=== PATIENT | male | born 1955 | race Caucasian/White ===

== ENCOUNTER 2022-08-20 10:32 | Emergency (ER) | payer OTHER ==
--- OUTSIDE RECORDS SUMMARY | 2022-08-20 10:36 | XMS REPORT | Continuity of Care Document ---
:1955 Author Organization [facility] t Address [address] [place] [address] Care Team Providers Name Role Phone PCP, PATIENT DOES NOT HAVE A Primary Care Physician Ceciliaa DONNA Leigh Attending Clinician Unavailable Donna Brantley Attending Clinician Payers Payer Name Policy Type Policy Number Effective Date Expiration Date S [facility] [id number] 2021 00:00:00 Problems Condition Condition Condition Status Onset Resolution Last Treating Co mments Source Name Details Category Date Date Treatment Clinician Date No known No known Disease Unive rs active active ity of problems problems [facility] Allergies, Adverse Reactions, Alerts Allergy Allergy Status Severity Reaction(s) Onset Inactive Treating Comm ents Source Name Type Date Date Clinician NO KNOWN Drug Active Univers ALLERGIE Class ity of S [facility] Social History Social Habit Start Date Stop Date Quantity Comments Source Exposure to 2022-04-18 2022-04-28 Not sure [facility]-CoV-2 00:00:00 13:22:00 [facility] (event) [place] Tobacco use and 2022-04-28 2022-04-28 Smokeless tobacco Un iversity of exposure 00:00:00 00:00:00 non-user [facility] Sex Ass[birth year] Universit y of 00:00:00 00:00:00 [facility] Smoking Status Start Date Stop Date Source Never smoked tobacco [facility] Medications Ordered Filled Start Stop Current Ordering Indication Dosage Frequency Signature Comments Components Source Medication Medication Date Date Medication? Clinician (SIG) Name Name ciplitloxac 2021- No [id number] 500mg Take 1 Univers in HCl 500 04-28 tablet by ity of mg tablet 00:00: 04:59 mouth [place] 00 :00 every 12 Medical (twelve) Branch hours for 7 days. ciprofloxac 2021- No [id number] 500mg Take 1 Univers in HCl 500 04-28 tablet by ity of mg tablet 00:00: 04:59 mouth [place] 00 :00 every 12 Medical (twelve) Branch hours for 7 days. Vital Signs Vital Name Observation Time Observation Value Comments Source Systolic blood 2022-04-28 18:25:00 153 mm[Hg] Univer sity [facility] Diastolic blood 2022-04-28 18:25:00 84 mm[Hg] Unive [facility] Heart rate 2022-04-28 18:20:00 82 /min [facility] Body temperature 2022-04-28 18:20:00 36.94 [facility] Respiratory rate 2022-04-28 18:20:00 18 /[facility] Body height 2022-04-28 18:20:00 167.6 cm [facility] Body weight 2022-04-28 18:20:00 71.668 kg [facility] BMI 2022-04-28 18:20:00 25.50 kg/m2 [facility] Procedures Procedure Date / Time Performed Performing Clinician Sourc e POCT URINALYSIS 2022-04-28 00:00:00 Concepcion [facility] o [facility] Encounters Start End Encounter Admission Attending Care Care Encounter Source Date/Time Date/Time Type Type Clinicians Facility Department ID 2022-04-28 2022-04-28 Outpatient O VANI [facility] [id number] Univers 13:00:00 14:07:24 DONNA williamson o f [facility] 2022-04-28 2022-04-28 Urgent Vani [facility] [id number] Univers 13:00:00 13:20:00 Care [facility] [id number] i ty of REUBEN [id number] Ashwin as RONY?BLEA [id number] [address] MEDICAL OFFICE BUILDING Results Test Description Test Time Test Comments Results Result Comments Source POCT URINALYSIS W SPECIFIC GRAVITY 2022-04-28 18:27:00 Test Item Value Reference Range Interpretation Comme nts POCT U SP GRAV (test code = 3255) 1.000 mg/dl 1.005-1.025 A POCT PH U (test code = 3254) 5 mg/dl 5-8 POCT U LEUK EST (test code = 3263) ++ Negative - Negative POCT U NIT (test code = 3262) + Negative - Negative POCT U PROT (test code = 3259) +++500 mg/dL Negative - Negative POCT U GLU (test code = 3256) normal Negative - Negative POCT U KETONE (test code = 3258) ++moderate Negative - Negative POCT U UROBILI (test code = 3260) normal 0.2-1 POCT U BILI (test code = 3261) negative Negative - Negative POCT U BLD (test code = 3257) about 250 Med/dL Negative - Negative POCT U COLOR (test code = 3266) red POCT U APPEAR (test code = 3267) cloudy Lab Interpretation (test code = 52395-8) Abnormal General acute hospital URINALYSIS W SPECIFIC [id number] 18:27:00 Test Item Value Reference Range Interpretation Comments POCT U SP GRAV (test code 1.000 mg/dl 1.005-1.025 A = 3255) POCT PH U (test code = 5 mg/dl 5-8 4) POCT U LEUK EST (test ++ Negative - Negative code = 3263) POCT U NIT (test code = + Negative - Negative 3262) POCT U PROT (test code = +++500 mg/dL Negative - Negative 3259) POCT U GLU (test code = normal Negative - Negative 3256) POCT U KETONE (test code ++moderate Negative - Negative = 3258) POCT U UROBILI (test code normal 0.2-1 = 3260) POCT U BILI (test code = negative Negative - Negative 3261) POCT U BLD (test code = about 250 Med/dL Negative - Negative 3257) POCT U COLOR (test code = red 3266) POCT U APPEAR (test code cloudy = 3267) Lab Interpretation (test Abnormal code = 94133-6) [facility]
[2022-08-20] MEDS ORDERED: MORPHINE 4 MG/ML SYR ONE ×2 (10:59→13:48)
[2022-08-20 11:16] LABS: Absolute Lymphocytes (CBC) 1.2 K/uL (0.7-4.9); Hematocrit 36.1 % (39.6-49.0); Lymphocytes % 8.6 % (15.3-44.8); MCV 98.3 fL (80-100); MPV 6.7 fL (7.6-11.3); RBC Red Blood Cell Count 3.67 M/uL (4.33-5.43)
[2022-08-20 11:18] LABS: Protime INR 1.05
[2022-08-20 11:34] LABS: Albumin 3.6 g/dL (3.4-5.0); Bilirubin Direct 0.1 mg/dL (0-0.2); Bilirubin Total 0.4 mg/dL (0.2-1.0); Magnesium 1.7 mg/dL (1.6-2.4); Potassium 3.1 mmol/L (3.5-5.1); Protein, Total 7.3 g/dL (6.4-8.2); Troponin High Sensitivity 4.5 pg/mL (<58.9)
[2022-08-20 11:51] LABS: SARS-COV-2 RT PCR NEGATIVE (NEGATIVE)
--- NOTE | 2022-08-20 12:39 | RAD REPORT ---
EXAM DESCRIPTION: CT - Angio Aorta For Dissection - 08/20/2022 11:48 am CLINICAL HISTORY: . Chest and abd pain COMPARISON: None TECHNIQUE: Computed tomography angiography of the chest, abdomen pelvis were obtained. 100 cc Isovue 370 was administered intravenously. Coronal and sagittal reconstruction were performed. MIP 3D reconstruction was performed All CT scans are performed using dose optimization technique as appropriate and may include automated exposure control or mA/KV adjustment according to patient size. FINDINGS: An aortic dissection is not seen. An aortic aneurysm is not displayed. The celiac, SMA and CESAR are patent . A lung consolidation is not present. A pericardial effusion is not seen. A pleural effusion is not no criss. The liver,spleen, pancreas,adrenals and kidneys demonstrate no significant abnormality. Small umbilical hernia. Fatty liver Spleen, pancreas, adrenals and kidneys demonstrate no gross abnormality. Large left inguinal hernia contains bowel. No obstruction. Large left hydrocele. Small right inguinal hernia IMPRESSION: Negative for an aortic dissection. Large left inguinal hernia contains bowel. No obstruction. Large hydrocele
--- NOTE | 2022-08-20 13:25 | RAD REPORT ---
EXAM DESCRIPTION: US - Abdomen Exam Limited - 08/20/2022 1:15 pm CLINICAL HISTORY: ABD PAIN COMPARISON: Angio Aorta For Dissection dated 08/20/2022 FINDINGS: No gallstones, sludge or other abnormalities within the gallbladder lumen. No gallbladder wall thickening or edema. No measurable quantity of pericholecystic fluid. No common duct stone or biliary tree dilatation identified. IMPRESSION: No gallbladder or biliary tree abnormality identifiable.
--- NOTE | 2022-08-20 14:28 | EDPHYS ---
Physician Documentation [facility] Name: Panchito Rutherford Age: 67 yrs Sex: Male : 1955 Arrival Date: 08/20/2022 Time: 10:36 Bed 16 Private MD: ED Physician Gil Conte HPI: 08/20 10:37 This 67 yrs old Male presents to ER via EMS with complaints of Abdominal Pain. jmm 10:37 The patient presents with abdominal pain. Onset: The symptoms/episode began/occurred jmm gradually, this morning. This is a 67-year-old male that presents emerged part with complaints of cute onset epigastric pain. Patient states symptoms initially began this morning while at work the patient had an episode of coughing and the pain acutely intensified. Patient states having multiple episodes of vomiting. Denies diarrhea. Denies shortness of breath.. Historical: - Allergies: 10:38 No Known Allergies; ss - Immunization history:: Client reports having NOT received the Covid vaccine. - Social history:: Smoking status: Patient denies any tobacco usage or history of. Patient uses alcohol, on a daily basis. admits to "couple of beers" a day. ROS: 10:37 Constitutional: Negative for fever, chills, and weight loss, Cardiovascular: Negative jmm for chest pain, palpitations, and edema, Respiratory: Negative for shortness of breath, cough, wheezing, and pleuritic chest pain. 10:37 Abdomen/GI: Positive for abdominal pain, nausea and vomiting. 10:37 All other systems are negative. Exam: 10:37 Constitutional: This is a well developed, well nourished patient who is awake, alert, jmm and in no acute distress. Head/Face: atraumatic. Eyes: EOMI, no conjunctival erythema appreciated ENT: Moist Mucus Membranes Neck: Trachea midline, Supple Chest/axilla: Normal chest wall appearance and motion. Cardiovascular: Regular rate and rhythm. No edema appreciated Respiratory: Normal respirations, no respiratory distress appreciated 10:37 Back: Normal ROM Skin: General appearance color normal MS/ Extremity: Moves all extremities, no obvious deformities appreciated, no edema noted to the lower extremities Neuro: Awake and alert Psych: Behavior is normal, Mood is normal, Patient is cooperative and pleasant 10:37 Abdomen/GI: Inspection: abdomen appears normal, Bowel sounds: normal, Palpation: soft, mild abdominal tenderness, in all quadrants. Vital Signs: 10:36 BP 146 / 68; Pulse 77; Resp 26; Temp 97.0(TE); Pulse Ox 99% on R/A; Weight 68.04 kg; ss Height 5 ft. 6 in. (167.64 cm); Pain 10/10; 13:51 BP 132 / 66; Pulse 72; Resp 18; Pulse Ox 99% ; jh5 10:36 Body Mass Index 24.21 (68.04 kg, 167.64 cm) ss MDM: 10:52 Patient medically screened. [facility] 18:42 Data reviewed: vital signs, nurses notes. I considered the following discharge [facility] prescriptions or medication management in the emergency department Antibiotics: At this time antibiotics are not recommended, Medications were administered in the Emergency Department. See MAR. Counseling: I had a detailed discussion with the patient and/or guardian regarding: the historical points, exam findings, and any diagnostic results supporting the discharge/admit diagnosis, lab results, radiology results, the need for outpatient follow up, to return to the emergency department if symptoms worsen or persist or if there are any questions or concerns that arise at home. ED course: Is a largePain is alleviated in the ED. Repeat abdominal exam was negative. Abdomen is soft. Patient is feeling much better. I did recommend the patient follows up with general surgery due for large inguinal hernia. Patient otherwise given strict return precautions. Patient understood and agrees plan of care.. 08/20 10:37 Order name: Basic Metabolic Panel; Complete Time: 11:36 [facility] 08/20 10:37 Order name: CBC with Diff; Complete Time: 11: [facility] 08/20 10:37 Order name: LFT's; Complete Time: 11:36 [facility] 08/20 10:37 Order name: Magnesium; Complete Time: 11:36 [facility] 08/20 10:37 Order name: NT PRO-BNP; Complete Time: 11:36 [facility] 08/20 10:37 Order name: PT-INR; Complete Time: 11:18 [facility] 08/20 10:37 Order name: Troponin HS; Complete Time: 11:36 [facility] 08/20 10:37 Order name: EKG; Complete Time: 10:38 [facility] 08/20 10:37 Order name: Lipase; Complete Time: 11:36 [facility] 08/20 10:39 Order name: CT Aorta for Dissection; Complete Time: 12:39 [facility] 08/20 10:39 Order name: COVID-19/FLU A+B; Complete Time: 11:53 [facility] 08/20 12:40 Order name: US Abdomen Limited; Complete Time: 13:29 [facility] 08/20 10:37 Order name: Cardiac monitoring; Complete Time: 11:05 [facility] 08/20 10:37 Order name: EKG - Nurse/Tech; Complete Time: 11:26 [facility] 08/20 10:37 Order name: IV Saline Lock; Complete Time: 11:05 [facility] 08/20 10:37 Order name: Labs collected and sent; Complete Time: 11:05 [facility] 08/20 10:37 Order name: O2 Per Protocol; Complete Time: 11: [facility] 08/20 10:37 Order name: O2 Sat Monitoring; Complete Time: 11:05 [facility] Administered Medications: 11:05 Drug: morphine 4 mg Route: IVP; Infused Over: 4 mins; Site: left antecubital; [facility] 13:49 Drug: morphine 4 mg Route: IVP; Infused Over: 4 mins; Site: left antecubital; [facility] Disposition: 19:15 Co-signature as Attending Physician, Gil OLVERA was immediately available on-site ms3 in the Emergency Department for consultation in the care of the patient. Disposition Summary: 08/20/22 14:27 Discharge Ordered Location: Home [facility] Condition: Stable [facility] Diagnosis - Abdominal pain, unspecified jm - Unilateral inguinal hernia, without obstruction or gangrene [facility] Followup: [facility] - With: Saul Nicholas MD - When: 2 - 3 days - Reason: Recheck today's complaints, Continuance of care, Re-evaluation by your physician Discharge Instructions: - Discharge Summary Sheet jmm - Abdominal Pain, Adult jmm - Clear Liquid Diet, Adult jmm - Inguinal Hernia, Adult [facility] Forms: - Medication Reconciliation Form [facility] - Thank You Letter [facility] - Antibiotic Education [facility] - Prescription Opioid Use [facility] Prescriptions: - Ultracet 37.5-325 mg Oral Tablet - take 1 tablet by ORAL route every 6 hours - for up to 5 days; do not exceed 8 jmm tablets per day.; 20 tablet; Refills: 0, Product Selection Permitted - ondansetron 4 mg Oral - take 4 milligrams by SUBLINGUAL route every 8 hours; 15 tablet; Refills: 0, jmm Product Selection Permitted Signatures: Dispatcher [employer] Devonte Douglass PA PA jmm Smirch, Shelby RN RN ss Gil Conte DO DO ms3 Shanelle Bingham RN RN jh5
--- NOTE | 2022-08-20 14:28 | ER ---
Nurse's Notes [facility] Name: Panchito Rutherford Age: 67 yrs Sex: Male : 1955 Arrival Date: 08/20/2022 Time: 10:36 Bed 16 Private MD: Diagnosis: Abdominal pain, unspecified;Unilateral inguinal hernia, without obstruction or gangrene Presentation: 08/20 10:36 Chief complaint: Patient states: severe abd pain that began this morning, is getting ss worse. Pt reports he drinks ETOH daily. Coronavirus screen: Client denies travel out of the [place] in the last 14 days. Ebola Screen: Patient denies exposure to infectious person. Patient denies travel to an Ebola-affected area in the 21 days before illness onset. Initial Sepsis Screen: Does the patient meet any 2 criteria? No. Patient's initial sepsis screen is negative. Does the patient have a suspected source of infection? No. Patient's initial sepsis screen is negative. Risk Assessment: Do you want to hurt yourself or someone else? Patient reports no desire to harm self or others. Onset of symptoms was August 20, 2022. 10:36 Method Of Arrival: EMS: [facility] ss 10:36 Acuity: BLACK 2 ss Triage Assessment: 12:29 General: Appears in no apparent distress. Behavior is calm, cooperative, appropriate jh5 for age. Pain: Complains of pain in abdomen. GI: No deficits noted. Historical: - Allergies: 10:38 No Known Allergies; ss - Immunization history:: Client reports having NOT received the Covid vaccine. - Social history:: Smoking status: Patient denies any tobacco usage or history of. Patient uses alcohol, on a daily basis. admits to "couple of beers" a day. Screenin:28 [facility] ED Fall Risk Assessment (Adult) History of falling in the last 3 months, 5 including since admission No falls in past 3 months (0 pts) Confusion or Disorientation No (0 pts) Intoxicated or Sedated No (0 pts) Impaired Gait No (0 pts) Mobility Assist Device Used No (0 pt) Altered Elimination No (0 pt) Score/Fall Risk Level 0 - 2 = Low Risk. Abuse screen: Denies threats or abuse. Denies injuries from another. Nutritional screening: No deficits noted. Tuberculosis screening: No symptoms or risk factors identified. Assessment: 13:50 GI: Bowel sounds present X 4 quads. Abd is soft Abdomen is tender to palpation. [facility] Vital Signs: 10:36 BP 146 / 68; Pulse 77; Resp 26; Temp 97.0(TE); Pulse Ox 99% on R/A; Weight 68.04 kg; Height 5 ft. 6 in. (167.64 cm); Pain 10/10; 13:51 BP 132 / 66; Pulse 72; Resp 18; Pulse Ox 99% ; jh5 10:36 Body Mass Index 24.21 (68.04 kg, 167.64 cm) ED Course: 10:36 Patient arrived in ED. 10:36 Devonte Chun PA is PHCP. [facility] 10:36 Gil Conte DO is Attending Physician. [facility] 10:38 Triage completed. 10:38 Arm band placed on right wrist. 11:01 Shanelle Bingham, ARCADIO is Primary Nurse. [facility] 11:50 CT Aorta for Dissection In Process Unspecified. EDMS 12:28 Patient has correct armband on for positive identification. Call light in reach. Side 5 rails up X 1. 12:28 No provider procedures requiring assistance completed. 5 13:17 US Abdomen Limited In Process Unspecified. EDMS 14:27 Saul Nicholas MD is Referral Physician. [facility] 14:34 IV discontinued, intact, bleeding controlled, No redness/swelling at site. Pressure 5 dressing applied. Administered Medications: 11:05 Drug: morphine 4 mg Route: IVP; Infused Over: 4 mins; Site: left antecubital; [facility] 13:49 Drug: morphine 4 mg Route: IVP; Infused Over: 4 mins; Site: left antecubital; 5 Medication: 12:29 VIS not applicable for this client. 5 Outcome: 14:27 Discharge ordered by . [facility] 14:34 Discharged to home ambulatory. [facility] 14:34 Condition: good 14:34 Discharge instructions given to patient, Instructed on discharge instructions, follow up and referral plans. medication usage, safety practices, Demonstrated understanding of instructions, follow-up care, medications, Prescriptions given X 2. 14:40 Patient left the ED. [facility] Signatures: Dispatcher [employer] EDMS Devonte Chun PA PA jmm Smirch, Shelby, RN RN ss Shanelle Bingham, RN RN jh5
[2022-08-20 14:45] VITALS: TEMP 97; O2SAT 99
[2022-08-20 14:46] VITALS: BP 132/66
--- NOTE | 2022-08-23 17:02 | EKG ---
Test Date: 2022-08-20 Test Time: 11:12:51 Electro Winning Operator: LEONOR MEASUREMENT RESULTS: Intervals: Rate: 72 DC: 130 QRSD: 88 QT: 428 QTc: 468 [place]: P: 46 DC: 130 QRS: 72 T: 68 INTERPRETIVE STATEMENTS: Normal sinus rhythm with sinus arrhythmia ST abnormality, possible digitalis effect Abnormal ECG No previous ECG available for comparison Electronically Signed On 08-23-22 16:57:33 EDUCATION INSTRUCTOR by Baldemar Capellan
== END 2022-08-20 14:40 | disposition home or self-care (01) ==
LOC: ER 10:32
DX: K40.90 Unilateral inguinal hernia, without obstruction or gangrene, not specified as recurrent (principal); Z20.822 Contact with and (suspected) exposure to COVID-19
CPT/HCPCS: 93005; 85025; 80048; 36415; 83735; 85610; 80076; 84484; 83690; 83880; 0240U; 71275; 74175; 76705; 96374; 99284; Q9967

== ENCOUNTER 2025-03-05 12:39 | Emergency (ER) | payer OTHER ==
--- OUTSIDE RECORDS SUMMARY | 2025-03-05 12:43 | XMS REPORT | Continuity of Care Document ---
Author Name Unknown Address [address] [facility] [place] [address] Organization [facility] [place] Address [address] [facility] [place] [address] Care Team Providers Care Canvas Baster Name Role Phone PCP, PATIENT DOES NOT HAVE A Primary Care Physic anne Unavailable CHIOMA BRYSON Attending Clinician Unavailable [id number] Attending Clinician Unavailable ELSY TOVAR Attending Clinician Unavailable CHIOMA ESPINO Attending Clinician UnaRENATO Mcgovern Attending Clinician Unavailable CHENCHO HUBBADR Attending Clinician Unavailable SWAB, CK COVID SELF Attending Clinician Unavaila ble SWAB, MC COVID SELF Attending Clinician Unavaila ble TRINITY, SAURAV ACEVES Attending Clinician Unavailchary MAGALLANES MD Attending Clinician Unavailab le LAB90 Attending Clinician Unavailable DONNA LUDWIG Attending Clinician UnavailDonna Barnes Attending Clinician Payers Payer Name Policy Type Policy Number Effective Date Expirati on Date Source KCA SIGNATURE O 7 [id number] 2024 00:00:00 [facility] [id number] 2021 00:00:00 Problems Condition Name Condition Details Condition Category Status Onset Date Resolution Date Last Treatment Date Treating Clinician Comments Source Mixed hyperlipid emia Mixed hyperlipid emia Disease Active 01-29 00:00: 00 Leanne cortez Well adult exam Well adult exam Disease Active 01-29 00:00: 00 Leanne Christianold - Externa l No known active problems No known active problems Disease Univers [facility] Umbilical hernia without obstructio n and without gangrene Umbilical hernia without obstructio n and without gangrene Disease Resolve d 2-02 00:00: 00 2024-01-30 00:00:00 2024-01-30 15:43:31 Leanne Emanuel - Externa l Non-recurr ent unilateral inguinal hernia without obstructio n or gangrene Non-recurr ent unilateral inguinal hernia without obstructio n or gangrene Disease Resolve d 2- 00:00: 00 2024-01-30 00:00:00 2024-01-30 15:43:34 Leanne Christianold - Externa l Allergies, Adverse Reactions, Alerts Allergy Name Allergy Type Status Severity Reaction(s) Onset Date Inactive Date Treating Clinician Comments Source NO KNOWN ALLERGIE S Drug Class Active [facility] Social History Social Habit Start Date Stop Date Quantity Comments Source Sexual orientation K altagraciajeronimo Seybold - External History SDOH Alcohol Frequency Leanne adames - External History SDOH Alcohol Std Drinks Leanne Haddad ybold - External History SDOH Alcohol Binge Leanne Emanuel - External Gender identity Kirti raza Seybjeffrey - External History of Occupation Leanne Emanuel - External Alcoholic beverage intake 2025-02-28 00:00:00 2025-02-28 00:00:00 Current drinker of alcohol (finding) Leanne Emanuel - External History of Social function 2024-01-30 00:00:00 2024-01-30 00:00:00 Leanne Emanuel - External Alcohol Comment 2022-10-18 00:00:00 2022-10-18 00:00:00 social Leanne Emanuel - External Education 2022-09-02 00:00:00 2022-09-02 00:00:00 17 Leanne Christianold - External Alcohol intake 2022-09-02 00:00:00 2022-09-02 00:00:00 Current drinker of alcohol (finding) Leanne Emanuel - External Tobacco use and exposure 2022-08-31 00:00:00 2022-08-31 00:00:00 Smokeless tobacco non-user Leanne Emanuel - External Sex 2022-05-17 09:29:14 2022-05-17 09:29:14 Male (finding) Leanne Emanuel - External Exposure to SARS-CoV-2 (event) 2022-04-18 00:00:00 2022-04-28 13:22:00 Not sure [facility] Sex assigned at 1955 00:00:00 1955 00:00:00 Leanne Emanuel - External Smoking Status Start Date Stop Date Source Never smoked tobacco Leanne Sofia External Medications Ordered Medication Name Filled Medication Name Start Date Stop Date Current Medication? Ordering Clinician Indication Dosage Frequency Signature (SIG) Comments Components Source Sildenafil Citrate 100 MG oral Tablet Sildenafil Citrate 100 MG oral Tablet 02-28 00:00: 00 Yes [id number] 50mg QD Take 0.5 tablets (50 mg total) by mouth daily as needed for erectile dysfunctio cesilia cortez Sildenafil Citrate 100 MG oral Tablet Sildenafil Citrate 100 MG oral Tablet 01-30 00:00: 00 02-28 00:00 :00 No [id number] 50mg QD Take 0.5 tablets (50 mg total) by mouth daily as needed for erectile dysfunctio cesilia cortez Sildenafil Citrate 25 MG oral Tablet 01-29 00:00: 00 Yes [id number] 50mg QD Take 2 tablets (50 mg total) by mouth daily as needed for erectile dysfunctio cesilia cortez HYDROcodone -Acetaminop hen (Mccormick) 5-325 MG oral Tablet 10-22 00:00: 00 01-29 00:00 :00 No 1{tbl} Q.25D Take 1 tablet by mouth every 6 hours as needed for pain *BDP* Leanne cortez Docusate Sodium (Colace) 100 MG oral Capsule 3-24 00:00: 00 01-29 00:00 :00 No 100mg Q.5D Take 1 capsule (100 mg total) by mouth 2 times daily as needed for constipati on *BDP* Leanne cortez Ondansetron (ZOFRAN) 4 MG oral TABLET DISPERSIBLE 08-20 00:00: 00 01-29 00:00 :[address] 1 TABLET UNDER THE TONGUE EVERY 8 HOURS FOR NAUSEA Leanne cortez traMADol-Ac etaminophen 37.5-325 MG oral Tablet 08-20 00:00: 00 01-29 00:00 :00 No TAKE 1 TABLET BY MOUTH EVERY 6 HOURS FOR PAIN CONTROL. DO NOT EXCEED 8 TABLETS PER DAY Leanne cortez ciprofloxac in HCl 500 mg tablet 04-28 00:00: 00 05-06 04:59 :00 No [id number] 500mg Take 1 tablet by mouth every 12 (twelve) hours for 7 days. [facility] Immunizations Ordered Immunization Name Filled Immunization Name Date Status Comments Source Influenza Virus Vaccine, High Dose, Age 65 And Up Influenza Virus Vaccine, High Dose, Age 65 And Up 2024-06-18 00:00:00 Completed Leanne Emanuel - External Influenza Virus Vaccine, High Dose, Age 65 And Up Influenza Virus Vaccine, High Dose, Age 65 And Up 2023-05-14 00:00:00 Completed Leanne Emanuel - External Influenza Virus Vaccine, High Dose, Age 65 And Up Influenza Virus Vaccine, High Dose, Age 65 And Up 2022-06-05 00:00:00 Completed Leanne Emanuel - External Influenza Virus Vaccine, High Dose, Age 65 And Up 2022-06-05 00:00:00 Completed Leanne Emanuel - External Influenza Virus Vaccine, High Dose, Age 65 And Up Unknown Completed Leanne Emanuel - External Vital Signs Vital Name Observation Time Observation Value Comments S ourpoppy Systolic blood pressure 2025-02-28 07:57:00 118 mm[Hg] Leanne Dickens ld - External Diastolic blood pressure 2025-02-28 07:57:00 68 mm[Hg] Leanne quiroz - External Heart rate 2025-02-28 07:57:00 60 /min Neetu Emanuel - External Body temperature 2025-02-28 07:57:00 36.61 Suze Leanne Seybold - External Respiratory rate 2025-02-28 07:57:00 18 /min Leanne Seybold - External Body height 2025-02-28 07:57:00 167.6 cm Kirti ey Seybold - External Body weight 2025-02-28 07:57:00 70.364 kg Kirti ey Seybold - External BMI 2025-02-28 07:57:00 25.04 kg/m2 Kirti ey Seybold - External Oxygen saturation in Arterial blood by Pulse oximetry 2025-02-28 07:57:00 98 /min Leanne Seybo ld - External Body weight 2024-01-30 20:32:00 70.308 kg Kirti ey Seybold - External BMI 2024-01-30 20:32:00 25.02 kg/m2 Kirti ey Seybold - External Oxygen saturation in Arterial blood by Pulse oximetry 2024-01-30 20:32:00 100 /min Leanne Seybo ld - External Systolic blood pressure 2024-01-30 20:32:00 132 mm[Hg] Leanne Seybo ld - External Diastolic blood pressure 2024-01-30 20:32:00 78 mm[Hg] Leanne Seybo ld - External Heart rate 2024-01-30 20:32:00 78 /min Santosse y Seybold - External Body temperature 2024-01-30 20:32:00 37.22 Suze Leanne Seybold - External Respiratory rate 2024-01-30 20:32:00 19 /min Leanne Seybold - External Body height 2024-01-30 20:32:00 167.6 cm Kirti ey Seybold - External Systolic blood pressure 2022-09-02 15:47:00 132 mm[Hg] Leanne Seybo ld - External Diastolic blood pressure 2022-09-02 15:47:00 76 mm[Hg] Leanne Seybo ld - External Heart rate 2022-09-02 15:47:00 83 /min Kelse y Seybold - External Body temperature 2022-09-02 15:47:00 36.83 Suze Leanne Seybold - External Respiratory rate 2022-09-02 15:47:00 14 /min Leanne Seybold - External Body height 2022-09-02 15:47:00 165.1 cm Kirti ey Seybold - External Body weight 2022-09-02 15:47:00 69.4 kg Kirti ey Seybold - External BMI 2022-09-02 15:47:00 25.46 kg/m2 Kirti ey Seybold - External Oxygen saturation in Arterial blood by Pulse oximetry 2022-09-02 15:47:00 99 /min Leanne Sejosh ld - External Systolic blood pressure 2022-04-28 18:25:00 153 mm[Hg] [place] [facility] Diastolic blood pressure 2022-04-28 18:25:00 84 mm[Hg] [place] [facility] Heart rate 2022-04-28 18:20:00 82 /min [facility] Body temperature 2022-04-28 18:20:00 36.94 Suze [facility] Respiratory rate 2022-04-28 18:20:00 18 /min [facility] Body height 2022-04-28 18:20:00 167.6 cm [facility] Body weight 2022-04-28 18:20:00 71.668 kg [facility] BMI 2022-04-28 18:20:00 25.50 kg/m2 [facility] Procedures Procedure Date / Time Performed Performing Clinicia n Source COMP. METABOLIC PANEL (14) 2025-03-01 00:00:00 Leanne Emanuel - External LIPID PANEL 2025-02-28 00:00:00 Leanne pedraza - External HEMOGLOBIN (HB) A1C 2025-02-28 00:00:00 Vanesa Emanuel - External QUANTAFLO 2024-01-30 21:22:40 Elsy Tovar - External POCT URINALYSIS 2022-04-28 00:00:00 [facility] Plan of Care Planned Activity Planned Date Details Comments Source Encounters Start Date/Time End Date/Time Encounter Type Admission Type Attending [facility] Care Facility Care Department Encounter ID Source 2025-03-05 00:00:00 2025-03-05 00:00:00 Outpatient CHIOMA BRYSON [id number] Leanne Emanuel 2025-02-28 08:45:00 2025-02-28 08:45:00 Outpatient [id number] [facility]ANNE [facility]AN[facility] [id number] [facility] 2025-02-28 08:00:00 2025-02-28 08:00:00 Outpatient BRYSONCHIOMA KISER LEANNE [id number] Leanne Seybold 2025-02-13 00:00:00 2025-02-13 00:00:00 Outpatient PREZAS, ELSY ADAMS LEANNE [id number] [facility] 2024-05-04 00:00:00 2024-05-04 00:00:00 Outpatient PREZAS, ELSY LEANNE ADAMS [id number] [facility] 2024-04-18 00:00:00 2024-04-18 00:00:00 Outpatient PREZAS, ELSY LEANNE LEANNE [id number] [facility] 2024-04-08 00:00:00 2024-04-08 00:00:00 Outpatient PREZAS, ELSY LEANNE LEANNE [id number] [facility] 2024-03-11 00:00:00 2024-03-11 00:00:00 Outpatient PREZAS, ELSY LEANNE ADAMS [id number] [facility] 2024-01-31 00:00:00 2024-01-31 00:00:00 Outpatient PREZAS, ELSY LEANNE ADAMS [id number] [facility] 2024-01-30 15:45:00 2024-01-30 15:45:00 Outpatient PREZAS, ELSY LEANNE ADAMS [id number] [facility] 2024-01-30 00:00:00 2024-01-30 00:00:00 Outpatient LEANNE ADAMS [id number] Leanne Seybold 2024-01-30 00:00:00 2024-01-30 00:00:00 Outpatient PREZAS, ELSY LEANNE ADAMS [id number] Leanne Seybold 2023-12-06 00:00:00 2023-12-06 00:00:00 Outpatient PREZAS, ELSY LEANNE ADAMS [id number] Leanne Seybold 2022-11-30 15:00:2022-11-30 15:00:00 Outpatient ELSY TOVAR LEANNE ADAMS [id number] Leanne Seybold 2022-11-19 15:30:00 2022-11-19 15:30:00 Outpatient MANDEEPCHIOMA CRAWFORD LEANNE ADAMS [id number] Leanne Seybjeffrey 2022-11-05 14:30:00 2022-11-05 14:30:00 Outpatient CHIOMA ESPINO [id number] Leanne Seybold 2022-10-22 07:30:00 2022-10-22 07:30:00 Outpatient RENATO VASQUEZ [id number] Leanne Seybold 2022-10-22 00:00:00 2022-10-22 00:00:00 Outpatient CHENCHO HUBBARD [id number] Leanne Seybold 2022-10-18 13:30:00 2022-10-18 13:30:00 Outpatient SWAB, CK LEANNE ADAMS [id number] Leanne Seybold 2022-10-18 13:30:00 2022-10-18 13:30:00 Outpatient SWAB, MC LEANNE ADAMS [id number] Leanne Seybold 2022-10-18 11:15:00 2022-10-18 11:15:00 Outpatient TRINITY MG LEANNE ADAMS [id number] Leanne Seybold 2022-10-18 11:00:00 2022-10-18 11:00:00 Outpatient SAURAV PETERSEN [id number] Leanne Seybold 2022-10-18 00:00:00 2022-10-18 00:00:00 Outpatient ELSY TOVAR LEANNE ADAMS [id number] Leanne Seybold 2022-09-28 00:00:00 2022-09-28 00:00:00 Outpatient LEANNE ADAMS [id number] Leanne Seybjeffrey 2022-09-28 00:00:00 2022-09-28 00:00:00 Outpatient MD LEANNE LI [id number] Leanne Seybold 2022-09-24 15:30:00 2022-09-24 15:30:00 Outpatient RENATO VASQUEZ [id number] Leanne Emanuel 2022-09-02 10:45:00 2022-09-02 10:45:00 Outpatient LAB90 LEANNE LIRIANOSEY [id number] Leanne Emanuel 2022-09-02 10:00:00 2022-09-02 10:00:00 Outpatient ELSY TOVAR LEANNE ADAMS [id number] Leanne Emanuel 2022-09-02 00:00:00 2022-09-02 00:00:00 Outpatient MD LEANNE LI [id number] Leanne Emanuel 2022-04-28 13:00:00 2022-04-28 14:07:24 Outpatient O [facility] [id number] [facility] 2022-04-28 13:00:00 2022-04-28 13:20:00 Urgent Care [facility] [id number] [facility] Results Test Description Test Time Test Comments Results Result Co mments Source Leanne Emanuel - ExternalPOCT URINALYSIS W SPECIFIC [id number] 18:27:00* Test Item Value Reference Range Interpretation Comme [...] 3267) cloudy Lab Interpretation (test code = 61656-3) [facility] [id number] 18:27:00* Test Item Value Reference Range Interpretation Comme [...] 3267) cloudy Lab Interpretation (test code = 22761-9) Abnormal [facility] Notes Date/Time Note Provider Source 2025-02-28 08:31:34 [facility]2025-07-31 08:31:34* Chioma Bryson PA-C - 02/28/2025 8:03 AM CDT Images from the original note were not included. Kaylee Rutherford is here today for his annual Health Risk Assessment and Physical. Patient Active Problem List Diagnosis Mixed hyperlipidemia Well adult exam Current Medications[1] Social History[2] Chronic Care Review Cardiovascular disease: Coronary Artery Disease: The patient does not have Coronary Artery Disease. Peripheral Vascular Disease: The patient does not have Peripheral Vascular Disease. Heart Failure: Patient does not have heart failure CHF Screening Protocol Initiated No Rhythm Disorders: The patient does not have any rhythm disorders. Amputations: No Skin Ulcers: The patient does not have a skin ulcer. Smoking: The patient does not smoke. Dementia Screening: The patient was screened for Dementia today. The patient has mild cognitive impairment. The patient has no trouble with Activities of Daily Living. The patient has a diagnosis of no dementia . The patient is being managed by observation. Recent NeuroTrack Screening Results 02/28/2025 0819 Symbol Match Result: 3 Recent Path Points Scores Path Points Score: 22 Weight Control Screening:The patient's BMI is Body mass index is 25.04 kg/m?.. The patient has Appropriate weight. Alcohol Abuse Screening:The patient was screened for alcohol abuse today drinks moderately. Depression Screen/Management:The patient was screened screened for depression today. The patient has major depression disorder: No Do your emotions and mental health affect daily life or social activities? No Review current opioid prescriptions:The patient does not have a current opioid prescription Screen for potential Substance Use Disorders (SUDs):The patient does not take a non-prescribed opioid Aspirin Therapy: The benefits of Aspirin therapy were discussed today. I havenot recommended aspirin treatment. Physical Activity Monitoring: The patient currently does exercise regularly Prisca recommend increasing their exercise and physical activity program. Does physical health affect ability to get around or do everyday activitiessuch as climbing stairs or housecleaning? No Fall Prevention Screening:In the past 12 months have you had trouble with balance or walking? No In the past 12 months have you fallen to the ground without being pushed? No Review of SystemsReview of Systems Constitutional: Negative for activity change, fatigue, fever and unexpected weight change. HENT: Negative for congestion, hearing loss, postnasal drip and rhinorrhea. Eyes: Negative for visual disturbance. Respiratory: Negative for cough, chest tightness and shortness of breath. Cardiovascular: Negative for chest pain, palpitations and leg swelling. Gastrointestinal: Negative for abdominal pain, constipation, diarrhea and nausea. Genitourinary: Negative for difficulty urinating. Musculoskeletal: Negative for gait problem. Skin: Negative for rash. Neurological: Negative for dizziness and headaches. Physical Exam BP 118/68 (Side: Left Arm, Position: SITTING, Cuff Size: Medium Adult) | Pulse 60 | Temp 97.9 ?F (36.6 ?C) (Tympanic) | Resp 18 | Ht 5' 6" (1.676 m) | Wt 155 lb 2 oz (70.4 kg) | SpO2 98% | BMI 25.04 kg/m? Physical ExamConstitutional: General: He is not in acute distress. Appearance: Normal appearance. HENT: Head: Normocephalic and atraumatic. Right Ear: External ear normal. Left Ear: External ear normal. Nose: Nose normal. Eyes: Conjunctiva/sclera: Conjunctivae normal. Cardiovascular: Rate and Rhythm: Normal rate. Pulses: Normal pulses. Heart sounds: No murmur heard. Pulmonary: Effort: Pulmonary effort is normal. No respiratory distress. Breath sounds: No stridor. No wheezing, rhonchi or rales. Neurological: General: No focal deficit present. Mental Status: He is alert. Psychiatric: Mood and Affect: Mood normal. Behavior: Behavior normal. Thought Content: Thought content normal. Judgment: Judgment normal. End of Life Review:I have discussed the following with the patient: Advanced directives, Code Status, and Durable power of beam sealer Health Maintenance:Health Maintenance Review for Males: Colonoscopy: (Every 10 years for average risk at age 50-75) Health MaintenanceTopic Date Due Colorectal Cancer Screening Never done Tdap Vaccines Never done Zoster Vaccines (1 of 2) Never done Pneumococcal Vaccine: 50+ Years (1 of 1 - PCV) Never done Lipid Panel 09/02/2023 COVID-19 Vaccine (1 - 2023-25 season) Never done Influenza Vaccines (1) 04/01/2025 Physical Exam 02/28/2026 RSV Vaccines (1 - 1-dose 75+ series) 2031 AAA Screen: (One time screen for men age 65 who have smoked) There are no preventive care reminders to display for this patient. Lung Cancer Screen: (History 30 pack years smoking or more and who has not quit smoking for at least 15 years age 55-80) There are no preventive care reminders to display for this patient. Assessment and Plan Problem List Items Addressed This Visit Cardiac and Vasculature Mixed hyperlipidemia Relevant Orders LIPID PANEL Relevant Results Most Recent 09/02/22LIPIDS HDL CHOLESTEROL 97.00 (09/02/22) 97.00 Other Visit Diagnoses Annual physical exam - Primary Relevant Orders COMP. METABOLIC PANEL (14)Erectile dysfunction, unspecified erectile dysfunction type - Unchanged Relevant Medications Sildenafil Citrate 100 MG oral TabletScreening for diabetes mellitus Relevant Orders HEMOGLOBIN (HB) A1C Care gaps: Patient to go to local pharmacy for vaccines. He declined coloncancer screening with either cologard or colonoscopy. Return in about 6 months (around 08/31/2025) for HRA. This document was completed using voice recognition software. This can produce mechanic insulator errors that can at times significantly distort words and phrases. Please interpret any aspect of the note that is nonsensical in light of this fact. LEYLA BurlesonCSP: Dr. Elsy Tovar, DO [facility] [1]Current Outpatient Medications Medication Sig Dispense Refill Sildenafil Citrate 100 MG oral Tablet Take 0.5 tablets (50 mg total) by mouth daily as needed for erectile dysfunction. 6 tablet 1 No current facility-administered medications for this visit.[2] Social History Tobacco Use Smoking status: Never Smokeless tobacco: Never Vaping Use Vaping status: Never Used Substance Use Topics Alcohol use: Yes Comment: social Drug use: Never T [facility]2025-07-31 08:31:34Upcoming Encounters Scheduled Orders Name Type Priority Associated Diagnoses Orde r Schedule LIPID PANEL Lab Routine Mixed hyperlipidemia Exp ected: 02/28/2025 (Approximate), Expires: 05/29/2025 COMP. METABOLIC PANEL (14) Lab Routine Annual physical exam Expected: 0 03/01/2025, Expires: 04/29/2025 HEMOGLOBIN (HB) A1C Lab Routine Screenin g for diabetes mellitus Expected: 02/28/2025, Expires: 05/29/2025 Health Maintenance Due Date Last Done Comments COLONOSCOPY 1955 CT Colonography 1955 Cologuard 1955 Colorectal Cancer Screening 1955 FIT Tests 1955 Sigmoidoscopy 1955 Tdap Vaccines 1975 Pneumococcal Vaccine: 50+ Ye ars (1 of 1 - PCV) 2006 Zoster Vaccines (1 of 2) 2006 Lipid Panel 09/02/2023 09/02/2022 COVID-19 Vaccine (1 - season) 2024 Influenza Vaccines (#1) 2025 06/18/20, 05/14/2023, 06/05/2022 Physical Exam 02/28/2026 02/28/2025, 01/30/2024 RSV Vaccines (1 - 1-dose 75+ series) 2031 [facility]2025-07-31 08:31:34 [facility]2025-07-31 08:31:34 Diagnosis Annual physical exam - Primary Routine general medical examination at a health care facility Erectile dysfunction, unspec ified erectile dysfunction type - Unchanged Mixed hyperlipidemia Screening for diabetes shiv aviles [facility]2025-07-31 08:31:34 [place] [id number] 08:00:44 Chief Complaint Patient presents with Physical HRA -fasting for labs Penelope Brown LVN Neurotra completed Symbol match 3 Path point 22 T [facility]
[2025-03-05] MEDS ORDERED: ACETAMINOPHEN 325 MG TABLET ONE (13:14)
[2025-03-05] MEDS ORDERED: CEFEPIME 2 GM VIAL ONE (13:14)
[2025-03-05] MEDS ORDERED: NA CHLORIDE 0.9% 2,000 ML ONE (13:14)
[2025-03-05 13:20] LABS: Absolute Lymphocytes (CBC) 0.4 K/uL (0.7-4.9); Hematocrit 41.5 % (39.6-49.0); Hemoglobin 14.4 g/dL (13.6-17.9); MCH 32.6 pg (27.0-35.0); MCHC 34.7 g/dL (32.0-36.0); MCV 94.0 fL (80-100); MPV 6.9 fL (7.6-11.3); Nucleated RBC Absolute Count 0.0 (0-0); Nucleated Red Blood Cells % 0.0 % (0-0); RBC Red Blood Cell Count 4.41 M/uL (4.33-5.43); White Blood Count 6.80 thou/uL (4.3-10.9)
[2025-03-05 13:39] LABS: PT Prothrombin Time 12.7 SECONDS (10-13.0); PTT, Activated Partial Thromb 25.5 SECONDS (27.2-37.4); Protime INR 1.13
[2025-03-05 13:43] LABS: ALT/SGPT 21.0 U/L (16-61); AST/SGOT 16.0 U/L (15-37); Albumin 3.8 g/dL (3.4-5.0); Albumin/Globulin Ratio 1.1 (1.1-1.8); Alkaline Phosphatase 58.0 U/L (45-117); Anion Gap 12.4 mEq/L (5.0-15.0); BUN Blood Urea Nitrogen 11.0 mg/dL (7-18); Globulin 3.5 g/dL (2.3-3.5); Glucose Level 121.0 mg/dL (74-106); NT PRO-BNP 179.0 pg/mL (<125); Potassium 3.4 mEq/L (3.5-5.1); Troponin High Sensitivity 4.9 pg/mL (<58.9)
--- NOTE | 2025-03-05 13:43 | RAD REPORT ---
EXAMINATION: ONE VIEW CHEST XR CLINICAL INDICATION: FEVER TECHNIQUE: Frontal chest projection is submitted. Examination is limited by patient positioning and t echnique. COMPARISON: No prior exam. FINDINGS: Linear opacity in the left midlung and to a lesser extent the right midlung likely atelectasis. Lungs otherwise clear. The heart is upper limit of normal in size. No displaced fractures identified.
--- NOTE | 2025-03-05 13:49 | RAD REPORT ---
EXAMINATION: CT ABDOMEN AND PELVIS WITHOUT CONTRAST CLINICAL INDICATION: fever;Abd pain;Flank pain TECHNIQUE: CT abdomen and pelvis was performed, without IV contrast, as per department protocol. Axia l, sagittal and coronal reconstructions were obtained. One or more of the following dose reduction techniques were used: Automated exposure control, adjustment of the mA and kV according to the patien t size, and iterative reconstruction. Unless otherwise specified, incidental findings do not require dedicated imaging follow-up. COMPARISON: 08/20/2022 FINDINGS: The lack of intravenous contrast limits the sensitivity of this exam for evaluation of solid visceral organs, vascular structures, and retroperitoneum. LOWER CHEST: The visualized lung bases are clear. LIVER:Small low-density lesions in the liver likely cyst. No liver mass suspected. Grossly unremarkab le gallbladder. SPLEEN: Normal size. No focal lesion. PANCREAS: No mass, ductal dilation, or laure-pancreatic fluid. ADRENALS: Normal; no mass. KIDNEYS AND URETERS: Normal size and contour. No hydronephrosis. URINARY BLADDER: Decompressed with mild inflammation in the inferior pelvis. GASTROINTESTINAL TRACT: No evidence of bowel obstruction, significant free fluid, free air or abscess . APPENDIX: Appendix not visualized, but no inflammatory changes in region of appendix. LYMPH NODES: No lymphadenopathy. MUSCULOSKELETAL: No acute or suspicious osseous abnormality. ADDITIONAL FINDINGS: Prostate gland appears mildly edematous inflamed with surrounding fat stranding. Small fat-containing right inguinal hernia. IMPRESSION: Mildly inflamed appearance to the prostate gland and urinary bladder suggests infection. Advise corre lation with clinical and urinalysis findings.
[2025-03-05 14:41] LABS: Sqamous Epithelial <5 /HPF (None Seen); Urine Crystals Unidentified Few /HPF (None Seen); Urine Micro Reflex YN NO BILL MICROSCOPIC; Urine WBC Clump Rare /HPF (None Seen); Urine Yeast (Budding) Trace /HPF (None Seen)
--- NOTE | 2025-03-05 15:00 | ER ---
Nurse's Notes [facility] Name: Panchito Rutherford Age: 69 yrs Sex: Male : 1955 Arrival Date: 03/05/2025 Time: 12:39 Bed 5 Private MD: Diagnosis: UTI, sepsis Presentation: 03/05 12:51 Chief complaint: Spouse and/or significant other states: having mid to low back pain iw and frequent urination, pain with urination, subjective fever, started this morning. Coronavirus screen: At this time, the client does not indicate any symptoms associated with coronavirus-19. Ebola Screen: No symptoms or risks identified at this time. Initial Sepsis Screen: Does the patient meet any 2 criteria? No. Patient's initial sepsis screen is negative. Does the patient have a suspected source of infection? No. Patient's initial sepsis screen is negative. Risk Assessment: Do you want to hurt yourself or someone else? Patient reports no desire to harm self or others. Onset of symptoms was March 05, 2025. 12:51 Method Of Arrival: Ambulatory iw 12:51 Acuity: BLACK 3 iw 12:54 Initial Sepsis Screen: Does the patient meet any 2 criteria? HR > 90 bpm. iw 12:55 Note took Advil at 0740 this morning. iw Triage Assessment: 13:00 General: Appears in no apparent distress. uncomfortable, ill, Behavior is appropriate bp for age. Pain: Complains of pain in back. EENT: No deficits noted. Neuro: No deficits noted. Cardiovascular: No deficits noted. Respiratory: No deficits noted. GI: No deficits noted. : Reports pain in lower back urinary frequency. Derm: No deficits noted. Musculoskeletal: No deficits noted. Historical: - Allergies: 12:53 No Known Allergies; iw - Home Meds: 12:53 None [Active]; iw - PMHx: 12:53 Kidney stone; iw - PSHx: 12:53 hernia; iw - Immunization history:: Adult Immunizations up to date. - Infectious Disease History:: Denies. - Social history:: Smoking status: Patient denies any tobacco usage or history of. Screenin:00 [facility] ED Fall Risk Assessment (Adult) History of falling in the last 3 months, bp including since admission No falls in past 3 months (0 pts) Confusion or Disorientation No (0 pts) Intoxicated or Sedated No (0 pts) Impaired Gait No (0 pts) Mobility Assist Device Used No (0 pt) Altered Elimination No (0 pt) Score/Fall Risk Level 0 - 2 = Low Risk Oriented to surroundings. Abuse screen: Denies threats or abuse. Denies injuries from another. Nutritional screening: No deficits noted. Tuberculosis screening: No symptoms or risk factors identified. Assessment: 13:00 General: SEE TRIAGE NOTE. bp 15:00 Reassessment: Patient appears in no apparent distress at this time. Patient is alert, bp oriented x 3, equal unlabored respirations, skin warm/dry/pink. 03/06 09:15 General: this nurse called patient to follow up with preliminary blood culture results. ap3 patient reports symptoms have improved, and educated on follow-up after sensitivities are resulted. . Vital Signs: 03/05 12:51 BP 120 / 77; Pulse 117; Resp 18; Temp 100.3(O); Pulse Ox 96% ; Weight 70.31 kg; Height iw 5 ft. 6 in. ; 14:33 BP 102 / 74; Pulse 95; Resp 18 S; Pulse Ox 94% on R/A; kc6 14:58 BP 105 / 64; Pulse 95; Resp 16; Pulse Ox 98% ; bp 12:51 Body Mass Index 25.02 (70.31 kg, 167.64 cm) iw ED Course: 12:42 Patient arrived in ED. gl 12:42 Isidra Plunkett MD is Attending Physician. sp3 12:50 Isaac Khan, RN is Primary Nurse. bp 12:53 Triage completed. iw 12:54 Arm band placed on. iw 12:57 Isaac Khan, RN is Primary Nurse. bp 13:00 Provided Education on: NA. bp 13:10 Inserted saline lock: 20 gauge in right forearm, using aseptic technique. Blood bp collected. Flushed with 10 mL NS. 13:10 Initial lab(s) drawn, by me, sent to lab. First set of blood cultures drawn by me, bp Second set of blood cultures drawn by me. 13:20 EKG done, by ED staff, reviewed by Isidra Plunkett MD. Patient maintains SpO2 saturation kc6 greater than 95% on room air. 13:29 Chest Single View XRAY In Process Unspecified. EDMS 13:44 CT Abd/Pelvis - Without Contrast In Process Unspecified. EDMS 14:34 Patient has correct armband on for positive identification. Bed in low position. Call kc6 light in reach. Side rails up X 1. Adult w/ patient. Pulse ox on. NIBP on. Door closed. Noise minimized. Lights dimmed. Pillow given. Verbal reassurance given. 15:25 No provider procedures requiring assistance completed. IV discontinued, intact, bp bleeding controlled, No redness/swelling at site. Pressure dressing applied. Administered Medications: 13:22 Drug: NS 0.9% IV (30 ml/kg) 30 ml/kg IV at bolus once; Sepsis Protocol; to be given as bp a bolus over 90 minutes Route: IV; Rate: bolus; Site: right forearm; 15:25 Follow up: IV Status: Completed infusion bp 13:22 Drug: Acetaminophen PO 650 mg PO once Route: PO; bp 15:25 Follow up: Response: No adverse reaction bp 13:22 Drug: Cefepime IVPB 2 grams IVPB at 200 ml/hr once over 30 mins; (mix in NS 100 mL) bp Route: IVPB; Rate: 200 ml/hr; Infused Over: 30 mins; Site: right forearm; 15:25 Follow up: IV Status: Completed infusion bp Outcome: 14:59 Discharge ordered by MD. dietrich 15:25 Discharged to home ambulatory, with family, bp 15:25 Condition: stable 15:25 Discharge instructions given to patient, Instructed on discharge instructions, follow up and referral plans. medication usage, Demonstrated understanding of instructions, follow-up care, medications, Prescriptions given X 2, 15:26 Patient left the ED. bp Addendum: 03/09/2025 16:48 Addendum: Culture Results: Positive blood culture. No further action required. Bacteria j l7 sensitive to prescribed antibiotic. Signatures: Dispatcher [employer] EDMS Mary Adame RN RN iw Praveena Edward RN RN [id number] Isaac Khan RN RN bp Corrine Gibbons RN RN ap3 Patel, Setul, MD MD sp3 Bettye Laureano RN RN kc6 Sherry Dean, Reg Reg gl Corrections: (The following items were deleted from the chart) 03/05 12:54 12:51 BP 120 / 77; Pulse 117bpm; Resp 18bpm; Pulse Ox 96%; Temp 100.3F Oral; iw iw 12:54 12:53 PMHx: None; iw iw
--- NOTE | 2025-03-05 15:00 | EDPHYS ---
Physician Documentation [facility] Name: Panchito Rutherford Age: 69 yrs Sex: Male : 1955 Arrival Date: 03/05/2025 Time: 12:39 Bed 5 Private MD: ED Physician Isidra Plunkett HPI: 03/05 13:40 This 69 yrs old Male presents to ER via Ambulatory with complaints of Low Back Pain, sp3 Urinary Frequency. 13:40 69-year-old male with history of kidney stones now presents to the ED with difficulty sp3 urinating, fever and feeling ill. Symptoms been going on for the last 48 hours with today symptoms including fever subjectively. He denies any headache, neck pain, chest pain, shortness of breath, gross visualized hematuria, bleeding, syncope or any other signs or symptoms on ROS at this time.. Historical: - Allergies: 12:53 No Known Allergies; iw - Home Meds: 12:53 None [Active]; iw - PMHx: 12:53 Kidney stone; iw - PSHx: 12:53 hernia; iw - Immunization history:: Adult Immunizations up to date. - Infectious Disease History:: Denies. - Social history:: Smoking status: Patient denies any tobacco usage or history of. ROS: 13:40 Eyes: Negative for injury, pain, redness, and discharge, ENT: Negative for injury, sp3 pain, and discharge, Neck: Negative for injury, pain, and swelling, Cardiovascular: Negative for chest pain, palpitations, and edema, Respiratory: Negative for shortness of breath, cough, wheezing, and pleuritic chest pain, MS/Extremity: Negative for injury and deformity, Skin: Negative for injury, rash, and discoloration, Neuro: Negative for headache, weakness, numbness, tingling, and seizure, Psych: Negative for depression, anxiety, suicide ideation, homicidal ideation, and hallucinations, Allergy/Immunology: Negative for hives, rash, and allergies, Endocrine: Negative for neck swelling, polydipsia, polyuria, polyphagia, and marked weight changes, Hematologic/Lymphatic: Negative for swollen nodes, abnormal bleeding, and unusual bruising, 13:40 All other systems are negative, Exam: 13:41 Constitutional: This is a well developed, well nourished patient who is awake, alert, sp3 and in no acute distress. Head/Face: Normocephalic, atraumatic. Eyes: Pupils equal round and reactive to light, extra-ocular motions intact. Lids and lashes normal. Conjunctiva and sclera are non-icteric and not injected. Cornea within normal limits. Periorbital areas with no swelling, redness, or edema. Neck: Trachea midline, no thyromegaly or masses palpated, and no cervical lymphadenopathy. Supple, full range of motion without nuchal rigidity, or vertebral point tenderness. No Meningismus. Chest/axilla: Normal chest wall appearance and motion. Nontender with no deformity. No lesions are appreciated. Respiratory: Lungs have equal breath sounds bilaterally, clear to auscultation and percussion. No rales, rhonchi or wheezes noted. No increased work of breathing, no retractions or nasal flaring. Skin: Warm, dry with normal turgor. Normal color with no rashes, no lesions, and no evidence of cellulitis. MS/ Extremity: Pulses equal, no cyanosis. Neurovascular intact. Full, normal range of motion. Neuro: Awake and alert, GCS 15, oriented to person, place, time, and situation. Cranial nerves II-XII grossly intact. Motor strength 5/5 in all extremities. Sensory grossly intact. Cerebellar exam normal. Normal gait. Psych: Awake, alert, with orientation to person, place and time. Behavior, mood, and affect are within normal limits. 13:41 Abdomen/GI: Patient is suprapubic tenderness to palpation. Febrile at 100.3 here in the ED with heart rate 120 indicating tachycardia out of proportion to fever and likely requiring fluid resuscitation. Patient well-appearing otherwise., 13:41 ECG was reviewed by the Attending Physician. EKG demonstrates sinus tachycardia at 104 sp3 bpm with normal intervals, normal QRS, normal axis and nonspecific diffuse ST/T changes without evidence of acute ischemia. Vital Signs: 12:51 BP 120 / 77; Pulse 117; Resp 18; Temp 100.3(O); Pulse Ox 96% ; Weight 70.31 kg; Height iw 5 ft. 6 in. ; 14:33 BP 102 / 74; Pulse 95; Resp 18 S; Pulse Ox 94% on R/A; kc6 14:58 BP 105 / 64; Pulse 95; Resp 16; Pulse Ox 98% ; bp 12:51 Body Mass Index 25.02 (70.31 kg, 167.64 cm) iw MDM: 12:54 Medical Screening Exam initiated sp3 13:42 Data reviewed: vital signs, nurses notes, lab test result(s), EKG, radiologic studies. sp3 ED course: 69-year-old male with urinary complaints in the setting of history of kidney stones. Patient is febrile and tachycardic. Differential diagnosis includes UTI/pyelonephritis spectrum, ureterolithiasis/kidney stone spectrum including infection, sepsis, shock, other intra-abdominal process. Workup will include UA, general labs, CT scan of the abdomen pelvis noncontrast and a stone protocol, and treatment will include fluid resuscitation and antibiotics. Disposition pending workup and patient course.. 14:58 ED course: Patient feeling much improved. Heart rate now down into the low 90s blood sp3 pressure at 102/74. Repeat temperature pending. Admission offered as lactate was borderline however patient wants to be discharged. We will send him home on Levaquin with clear instructions to return if fever returns or he feels worse in any way. Patient and acknowledged and are grateful for the care.. 15:00 ED course: Evaluation for sepsis resuscitation post fluid bolus demonstrates adequate sp3 response with heart rate improving, blood pressure maintaining and patient is also now afebrile. Patient's perfusion is improved. Lactate at 1.9.. 03/06 04:39 ED course: Notified by lab that his blood cultures have come back positive as of this rn morning. Will have morning team call patient and have him come back to emergency room.. 03/05 12:57 Order name: BNP; Complete Time: 13:52 sp3 03/05 12:57 Order name: Blood Culture Adult (2) sp3 03/05 12:57 Order name: CBC with Diff; Complete Time: 04:39 sp3 03/05 12:57 Order name: CMP; Complete Time: 13:52 sp3 03/05 12:57 Order name: Lactate w/ 2H reflex if indic.; Complete Time: 13:52 sp3 03/05 12:57 Order name: Protime (+inr); Complete Time: 13:52 sp3 03/05 12:57 Order name: Ptt, Activated; Complete Time: 13:52 sp3 03/05 12:57 Order name: Troponin HS; Complete Time: 13:52 sp3 03/05 14:38 Order name: Urine Microscopic Only; Complete Time: 14:54 EDMS 03/05 12:57 Order name: Chest Single View XRAY; Complete Time: 13:52 sp3 03/05 13:34 Order name: CT Abd/Pelvis - Without Contrast; Complete Time: 13:52 sp3 03/05 12:57 Order name: EKG; Complete Time: 12:57 sp3 03/05 12:57 Order name: Accucheck; Complete Time: 13:06 sp3 03/05 12:57 Order name: Cardiac monitoring; Complete Time: 13:06 sp3 03/05 12:57 Order name: EKG - Nurse/Tech; Complete Time: 13:20 sp3 03/05 12:57 Order name: IV Saline Lock - Large Bore; Complete Time: 13:06 sp3 03/05 12:57 Order name: Labs collected and sent; Complete Time: 13:06 sp3 03/05 12:57 Order name: O2 Per Protocol; Complete Time: 13:06 sp3 03/05 12:57 Order name: O2 Sat Monitoring; Complete Time: 13:06 sp3 03/05 12:57 Order name: Vital Signs; Complete Time: 13:06 sp3 Administered Medications: 03/05 13:22 Drug: NS 0.9% IV (30 ml/kg) 30 ml/kg IV at bolus once; Sepsis Protocol; to be given as bp a bolus over 90 minutes Route: IV; Rate: bolus; Site: right forearm; 15:25 Follow up: IV Status: Completed infusion bp 13:22 Drug: Acetaminophen PO 650 mg PO once Route: PO; bp 15:25 Follow up: Response: No adverse reaction bp 13:22 Drug: Cefepime IVPB 2 grams IVPB at 200 ml/hr once over 30 mins; (mix in NS 100 mL) bp Route: IVPB; Rate: 200 ml/hr; Infused Over: 30 mins; Site: right forearm; 15:25 Follow up: IV Status: Completed infusion bp Disposition Summary: 03/05/25 14:59 Discharge Ordered Notes: Location: Home sp3 Condition: Stable sp3 Diagnosis - UTI, sepsis sp3 Followup: sp3 - With: Private Physician - When: Upon discharge from the Emergency Department - Reason: Continuance of care Discharge Instructions: - Discharge Summary Sheet sp3 - Urinary Tract Infection, Adult sp3 - Sepsis, Self Care, Adult sp3 Forms: - Medication Reconciliation Form sp3 - Antibiotic Education sp3 - Prescription Opioid Use sp3 - Patient Portal Instructions sp3 - Leadership Thank You Letter sp3 Prescriptions: - Tramadol 50 mg Oral Tablet - take 1 tablet ORAL route every 8 hours as needed; 12 tablet; Refills: 0, sp3 Product Selection Permitted - levofloxacin 500 mg Oral tablet - take 1 tablet ORAL route once daily for 7 days; 7 tablet; Refills: 0, Product sp3 Selection Permitted Signatures: Dispatcher [employer] EDMary Hill, ARCADIO ERVIN iw Dmitry Gallego MD MD rn Peltier, Brian, RN RN bp Patel, Setul, MD MD sp3 Corrections: (The following items were deleted from the chart) 12:54 12:53 PMHx: None; [facility] 14:38 12:57 UA Rfx Tristen Cult if indicated+U.LAB.BRZ ordered. EDMS EDMS
[2025-03-05 15:40] VITALS: TEMP 100.3
[2025-03-05 15:42] VITALS: BP 105/64; O2SAT 98
[2025-03-05 19:28] LABS: Blood Morphology Comment NOT SEEN (NOT SEEN); White Blood Cell Scan OK (OK)
== END 2025-03-05 15:26 | disposition home or self-care (01) ==
LOC: ER 12:39
DX: A41.9 Sepsis, unspecified organism (principal); N39.0 Urinary tract infection, site not specified
CPT/HCPCS: 96365; 96368; 93005; 87040 ×2; 85025; 36415; 87205 ×4; 85610; 83605; 85730; 87077 ×2; 87186 ×2; 81015; 84484; 80053; 83880; 74176; 71045; 99285; 96366; J0692; J7030